=== PATIENT | male | born 1990 | race American Indian/Alaskan Native ===

== ENCOUNTER 2017-07-31 11:48 | Day surgery (SDC) | payer OTHER ==
[~2017-07-31 11:48] MED LIST: ANCEF/STERILE WATER 2 GM/20 ML IV NR; NACL 0.9% IR ONE
[2017-07-31] MEDS ORDERED: NACL BACTERIOSTATIC INFILTRATI ONE (13:29)
--- NOTE | 2017-07-31 14:13 | Anesthesia Consultation ---
Anesthesia Consult and Med Hx Date of service: 07/31/17 - Airway Anesthetic Teeth Evaluation: Good ROM Head & Neck: Adequate Mental/Hyoid Distance: Adequate Mallampati Class: Class I Intubation Access Assessment: Good - Pulmonary Exam CTA: Yes - Cardiac Exam Cardiac Exam: No Murmur - Pre-Operative Health Status ASA Pre-Surgery Classification: ASA2 Proposed Anesthetic Plan: General - Pulmonary Hx Smoking: Yes (1/2 PPD) Hx Sleep Apnea: No (ROMERO PRE SCREEN LOW RISK.) - Cardiovascular System Hx Hypertension: No (Patient counselled on need for BP management) - Other Systems Hx Cancer: No
[2017-07-31] MEDS ORDERED: DEMEROL IV PRN (14:14)
[2017-07-31] MEDS ORDERED: DILAUDID IV PRN (14:14)
[2017-07-31] MEDS ORDERED: NARCAN 0.4 MG/1 ML IV PRN (14:14)
[2017-07-31] MEDS ORDERED: ZOFRAN IV PRN (14:14)
[2017-07-31] MEDS ORDERED: TYLENOL PO PRN (14:14)
[2017-07-31] MEDS ORDERED: TORADOL IV PRN (14:14)
--- NOTE | 2017-07-31 14:14 | Anesthesia Day of Surgery ---
Anesthesia Day of Surgery - Day of Surgery Patient Examined: Yes Patient H&P Reviewed: Yes Patient is NPO: Yes
[2017-07-31] MEDS ORDERED: SUBLIMAZE ONE (14:36)
[2017-07-31] MEDS ORDERED: XYLOCAINE MPF 2% ONE (14:36)
[2017-07-31] MEDS ORDERED: DIPRIVAN 10 MG/ML IV ONE (14:36)
[2017-07-31] MEDS ORDERED: LACTATED RINGERS 1,000 ML IV SCH (15:00)
[2017-07-31] MEDS ORDERED: NACL 0.9% IR ONE (15:28)
[2017-07-31] MEDS ORDERED: ZOFRAN ONE (15:42)
--- NOTE | 2017-07-31 16:05 | Short Stay Summary ---
Short Stay Documentation Date of service: 07/31/17 - History H&P: obtained from office - Allergies and Medications Current Medications: Allergies No Known Allergies Allergy (Verified 07/30/17 11:13) Home Medications Medication Instructions Recorded Confirmed Last Taken Type No Known Home Medications [No 07/30/17 07/30/17 Unknown History Reported Home Medications] Active Medications Acetaminophen (Tylenol) 650 mg PO ONCE PRN PRN Reason: Pain, Mild (1-3) Cefazolin Sodium (Ancef/Sterile Water 2 Gm/20 Ml) 2 gm IV PREOP NR Stop: 07/31/17 23:59 Hydromorphone HCl (Dilaudid) 0.5 mg IV Q10MIN PRN PRN Reason: Pain , Severe (7-10) Lactated Ringer's (Lactated Ringers) 1,000 mls @ 100 mls/hr IV DIRECT BOO Last Admin: 07/31/17 14:20 Dose: 100 mls/hr Ketorolac Tromethamine (Toradol) 30 mg IV ONCE PRN PRN Reason: Pain, Moderate (4-6) Meperidine HCl (Demerol) 25 mg IV ONCE PRN PRN Reason: Shivering Naloxone HCl (Narcan 0.4 Mg/1 Ml) 0.1 mg IV Q2MIN PRN PRN Reason: Res Rate </= 8 or 02 SAT < 92% Ondansetron HCl (Zofran) 4 mg IV ONCE PRN PRN Reason: Nausea And Vomiting - Brief post op/procedure progress note Date of procedure: 07/31/17 Pre-op diagnosis: rt hydrocele Post-op diagnosis: same Procedure: rt hydrocelectomy , scrotaplasty, drain Anesthesia: GETA Surgeon: ASHA ISAACS Estimated blood loss: minimal Pathology: none (sac, skin) Condition: stable - Hospital course Hospital course: norco & cipro on chart - Disposition Condition at discharge: Stable Disposition: DC-01 TO HOME OR SELFCARE Short Stay Discharge Plan Follow up with: PRIMARY CARE, [Primary Care Provider] - 7 Days
[2017-07-31] MEDS ORDERED: DILAUDID ONE (16:12)
[2017-07-31] MEDS ORDERED: APRESOLINE IV PRN (16:39)
[2017-07-31] MEDS ORDERED: APRESOLINE ONE (16:40)
[2017-07-31 18:00] VITALS: BP 123/71
--- NOTE | 2017-07-31 19:28 | Operative Report ---
PREOPERATIVE DIAGNOSIS: Bilateral hydrocele, right greater than left. POSTOPERATIVE DIAGNOSIS: Right hydrocele. PROCEDURE: Right hydrocelectomy, scrotoplasty, Jud drain. SURGEON: Mahesh Sinha MD ANESTHESIA: General. ESTIMATED BLOOD LOSS: Minimal. FLUIDS: Crystalloid. COMPLICATIONS: No complications. INDICATIONS: This 27-year-old gentleman seen in the office for right scrotal mass for years, now it is bigger, some discomfort. It is approximately softball size on exam. Ultrasound was consistent with bilateral hydroceles, significantly larger on the right. Risks, benefits, and complications were explained. The patient agreed to proceed with surgical intervention. DESCRIPTION OF PROCEDURE: The patient was taken to the operative suite, placed in a supine position. After adequate general anesthesia, prepped and draped in a sterile fashion. Due to the size of the hydrocele, the skin was marked to perform a scrotoplasty to reduce the redundant skin. A wedge resection of scrotal skin was removed, sent for routine pathologic evaluation. The hydrocele sac, a small incision was made. Serosanguineous fluid was evacuated. The rest of the hydrocele sac was removed. The remnant sac was closed using a 2-0 chromic in a running fashion. Appendix testis was cauterized. Adequate hemostasis was achieved. A [place]o drain was brought out through a separate stab incision and tied to the skin with 2-0 chromic in interrupted fashion. Inspection of the left sac did not see a significant hydrocele and elected to not violate the left hemiscrotum. The incision was made in a horizontal fashion; however, due to for better cosmetic return, it was closed in a vertical fashion using a 2-0 chromic in interrupted fashion. Dartos layer was closed with 2-0 chromic in a running fashion. The patient tolerated the procedure well. Scrotal support was placed. He was extubated and taken to recovery room. He will go home on [employer] [address] and follow up in the office. JOB# [id number] LISA/SINA
--- NOTE | 2017-07-31 20:54 | Post Anesthesia Evaluation ---
- Post Anesthesia Evaluation Patient Participated: Yes Airway Patent: Yes Stable Respiratory Function: Yes Nausea/Vomiting: No Temp > 96.8F: Yes Pain Manageable: Yes Adequeate Hydration: Yes Anesthesia Complications: No Block Receding Appropriately: Not Applicable Patient on Ventilator: No
== END 2017-07-31 17:43 | disposition home or self-care (01) ==
LOC: OR 11:48
PROVIDERS: ATTEND Urology
DX: N43.3 Hydrocele, unspecified (principal); I10 Essential (primary) hypertension; F17.210 Nicotine dependence, cigarettes, uncomplicated
CPT/HCPCS: 55041; 88302; J0360; J0690; J1170; J1885; J2175; J2405; J2704; J3010; J7120